=== PATIENT | male | born 1995 | race Two or more races ===

== ENCOUNTER 2017-09-22 21:57 | Emergency (ER) | payer OTHER ==
[2017-09-22 22:01] VITALS: BP 149/82
[2017-09-22] MEDS ORDERED: Clotrimazole 1% CREAM* 30 GM TOPICAL ONE (23:23)
--- NOTE | 2017-09-22 23:25 | ED ---
Skin Complaint - HPI Summary HPI Summary: 22-year-old male presents with rash for the past couple days. States that is itchy. States started on chest and since spread. Denies any new products. 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 He states he has had this rash before. He states that normally an antiviral helps. He denies any fevers. Denies any chills. He denies any chest pain or shortness breath. He is not diabetic. - History of Current Complaint Chief Complaint: EDRashSkinAbscess Time Seen by Provider: 09/22/17 23:05 Stated Complaint: RASH Pain Intensity: 0 - Allergy/Home Medications Allergies/Adverse Reactions: Allergies Allergy/AdvReac Type Severity Reaction Status Date / Time No Known Allergies Allergy Verified 09/22/17 22:00 PMH/Surg Hx/FS Hx/Imm Hx Endocrine/Hematology History: Denies: Hx Anticoagulant Therapy Cardiovascular History: Denies: Hx Myocardial Infarction Infectious Disease History: No Infectious Disease History: Denies: Traveled Outside the [place] in Last 30 Days - Family History Known Family History: Negative: Diabetes - Social History Alcohol Use: Rare Substance Use Type: Reports: None Smoking Status (MU): Unknown if Ever Smoked Review of Systems Negative: Fever Negative: Chest Pain Negative: Shortness Of Breath Positive: Rash All Other Systems Reviewed And Are Negative: Yes Physical Exam Triage Information Reviewed: Yes Vital Signs On Initial Exam: Initial Vitals Temp Pulse Resp BP Pulse Ox 98 F 60 16 149/82 100 09/22/17 22:00 09/22/17 22:00 09/22/17 22:00 09/22/17 22:00 09/22/17 22:00 Vital Signs Reviewed: Yes Appearance: Positive: Well-Appearing Skin: Positive: Warm, Dry, Other - rash with scaling rpesent on chest and back consistent with ring worm Head/Face: Positive: Normal Head/Face Inspection Eyes: Positive: Normal, Conjunctiva Clear ENT: Positive: Pharynx normal Respiratory/Lung Sounds: Positive: Clear to Auscultation, Breath Sounds Present Cardiovascular: Positive: Normal, RRR Musculoskeletal: Positive: Normal Neurological: Positive: Normal Psychiatric: Positive: Normal Diagnostics - Vital Signs Vital Signs Temp Pulse Resp BP Pulse Ox 09/22/17 22:00 98 F 60 16 149/82 100 - Laboratory Lab Statement: Any lab studies that have been ordered have been reviewed, and results considered in the medical decision making process. Course/Dx - Course Course Of Treatment: 22-year-old male presents with rash for the past couple days. States that is itchy. States started on chest and since spread. Denies any new products. 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 He states he has had this rash before. He states that normally an antiviral helps. He denies any fevers. Denies any chills. He denies any chest pain or shortness breath. He is not diabetic. on exam has scaling rash present on chest. will treat with clotrimazole. patient understand and agrees with plan. - Differential Diagnoses - Skin Complaint Differential Diagnoses: Cellulitis, Contact Dermatitis, Tinea - Diagnoses Provider Diagnoses: Tinea corporis Discharge - Sign-Out/Discharge Documenting (check all that apply): Discharge/Admit/Transfer - Discharge Plan Condition: Good Disposition: HOME Prescriptions: Ketoconazole 2 % EX DAILY #1 sha Patient Education Materials: Tinea Corporis (ED) Referrals: No Primary Care Phys,NOPCP [Primary Care Provider] - Additional Instructions: apply cream twice a day until clears wash with shampoo once a day Return to ED if develop any new or worsening symptoms - Billing Disposition and Condition Condition: GOOD Disposition: HOME
== END 2017-09-22 23:45 | disposition home or self-care (01) ==
LOC: ED 21:57
DX: B35.4 Tinea corporis (principal)
CPT/HCPCS: 99282